=== PATIENT | female | born 1945 | race Caucasian/White ===

== ENCOUNTER → 2023-08-06 | Emergency (ER) | payer OTHER, MEDICARE ==
--- NOTE | 2023-08-06 03:59 | ER ---
Nurse's Notes [facility] Name: Pamela Cárdenas Age: 78 yrs Sex: Female : 1945 Arrival Date: 08/06/2023 Time: 02:38 Bed 5 Private MD: Diagnosis: Occipital Hematoma Presentation: 08/06 02:39 Chief complaint: EMS states: tripped while going to restroom. fall on [place] lg3 hitting back of head. denies LOC. pain to scalp with small abrasion noted. pt currently on Eliquis. Coronavirus screen: Client denies travel out of the [place] in the last 14 days. At this time, the client does not indicate any symptoms associated with coronavirus-19. Ebola Screen: No symptoms or risks identified at this time. Initial Sepsis Screen: Does the patient meet any 2 criteria? No. Patient's initial sepsis screen is negative. Does the patient have a suspected source of infection? No. Patient's initial sepsis screen is negative. Risk Assessment: Do you want to hurt yourself or someone else? Patient reports no desire to harm self or others. Onset of symptoms was August 06, 2023. 02:39 Method Of Arrival: EMS: [facility] lg3 02:39 Acuity: BETTIE 3 lg3 Triage Assessment: 02:45 General: Appears in no apparent distress. comfortable, Behavior is calm, cooperative. lg3 Pain: Complains of pain in scalp Pain does not radiate. Pain currently is 3 out of 10 on a pain scale. EENT: No deficits noted. No signs and/or symptoms were reported regarding the EENT system. Neuro: No deficits noted. Bennett Agitation-Sedation Scale (RASS): 0 - Alert and Calm Level of Consciousness is awake, alert, obeys commands, Oriented to person, place, time, situation, Reports dizziness. Cardiovascular: No deficits noted. Denies chest pain, shortness of breath, Heart tones S1 S2 present Capillary refill < 3 seconds Clubbing of nail beds is absent JVD is absent Patient's skin is warm and dry. Respiratory: No deficits noted. Airway is patent Respiratory effort is even, unlabored, Respiratory pattern is regular, symmetrical, Breath sounds are clear bilaterally. GI: No deficits noted. No signs and/or symptoms were reported involving the gastrointestinal system. Abdomen is round non-distended, obese. : No deficits noted. No signs and/or symptoms were reported regarding the genitourinary system. Derm: Skin is intact, is healthy with good turgor, Skin is dry, Skin is normal, Skin temperature is warm Wound noted scalp. Musculoskeletal: No deficits noted. No signs and/or symptoms reported regarding the musculoskeletal system. Circulation, motion, and sensation intact. Range of motion: intact in all extremities. Historical: - Allergies: 02:45 No Known Allergies; lg3 - Home Meds: 02:45 Eliquis oral [Active]; lg3 - PMHx: 02:45 Cerebrovascular accident; Diabetes mellitus; Hypertensive disorder; Hypothyroidism; lg3 Atrial fibrillation; - PSHx: 02:45 Total abdominal hysterectomy; Appendectomy; Cholecystectomy; left knee replacement; lg3 neck; - Immunization history:: Adult Immunizations up to date, Client reports receiving the 2nd dose of the Covid vaccine, Flu vaccine is up to date. - Social history:: Smoking status: Patient denies any tobacco usage or history of. Patient/guardian denies using alcohol, street drugs. Screenin:48 Abuse screen: Denies threats or abuse. Denies injuries from another. Nutritional ha1 screening: No deficits noted. Tuberculosis screening: No symptoms or risk factors identified. 02:53 [facility] ED Fall Risk Assessment (Adult) History of falling in the last 3 months, lg3 including since admission Yes- single mechanical fall (1 pt) Confusion or Disorientation No (0 pts) Intoxicated or Sedated No (0 pts) Impaired Gait No (0 pts) Mobility Assist Device Used No (0 pt) Altered Elimination No (0 pt) Score/Fall Risk Level 0 - 2 = Low Risk Oriented to surroundings, Maintained a safe environment, Educated pt \T\ family on fall prevention, incl call for assistance when getting out of bed, Assessed \T\ reinforced patient's understanding of fall precautions. Assessment: 02:52 General: see triage assessment. lg3 03:32 Reassessment: Patient appears in no apparent distress at this time. No changes from lg3 previously documented assessment. Patient and/or family updated on plan of care and expected duration. Pain level reassessed. Patient is alert, oriented x 3, equal unlabored respirations, skin warm/dry/pink. 04:17 Reassessment: Patient appears in no apparent distress at this time. No changes from lg3 previously documented assessment. Patient and/or family updated on plan of care and expected duration. Pain level reassessed. Patient is alert, oriented x 3, equal unlabored respirations, skin warm/dry/pink. Patient states symptoms have improved. Vital Signs: 02:39 BP 139 / 79; Pulse 57; Resp 17 S; Temp 97.4(TE); Pulse Ox 100% on R/A; Weight 108.86 kg lg3 (R); Height 5 ft. 8 in. (R); Pain 3/10; 04:17 BP 139 / 70; Pulse 62; Resp 17 S; Temp 97.6(TE); Pulse Ox 100% on R/A; lg3 02:39 Body Mass Index 36.49 (108.86 kg, 172.72 cm) lg3 02:39 Pain Scale: Adult lg3 ED Course: 02:39 Patient arrived in ED. ec2 02:39 Moe Taylor MD is Attending Physician. ec2 02:39 Marga Driscoll RN is Primary Nurse. lg3 02:39 Patient has correct armband on for positive identification. Placed in gown. Bed in low ha1 position. Call light in reach. Side rails up X2. Adult w/ patient. 02:45 Triage completed. lg3 02:45 Arm band placed on right wrist. lg3 02:48 Inserted saline lock: 20 gauge in left antecubital area, using aseptic technique. Blood ha1 collected. 02:53 No provider procedures requiring assistance completed. Patient maintains SpO2 lg3 saturation greater than 95% on room air. 03:04 CT Head C Spine In Process Unspecified. EDMS 03:13 CXR XRAY In Process Unspecified. EDMS 03:13 Pelvis XRAY In Process Unspecified. EDMS 04:18 IV discontinued, intact, bleeding controlled, No redness/swelling at site. Pressure lg3 dressing applied. Administered Medications: No medications were administered Medication: 04:18 VIS not applicable for this client. lg3 Outcome: 03:58 Discharge ordered by . ec2 04:18 Discharged to home via wheelchair, with family, lg3 04:18 Condition: stable 04:18 Discharge instructions given to patient, family, Instructed on discharge instructions, follow up and referral plans. Demonstrated understanding of instructions, follow-up care, 04:18 Patient left the ED. lg3 Signatures: Dispatcher [employer] Marga Lambert RN RN lg3 Rachael Hooks RN RN ha1 Moe Taylor MD MD ec2
--- NOTE | 2023-08-06 03:59 | EDPHYS ---
Physician Documentation [facility] Name: Pamela Cárdenas Age: 78 yrs Sex: Female : 1945 Arrival Date: 08/06/2023 Time: 02:38 Bed 5 Private MD: ED Physician Moe Taylor HPI: 08/06 02:40 This 78 yrs old Female presents to ER via Unassigned with complaints of fall. ec2 02:40 Patient arrives today for evaluation after ground-level fall. States that she was ec2 walking subsequently tripped and fell and hit the back of her head. No LOC, is on Eliquis. Patient denies any prodromal symptoms, denies chest pain, denies difficulty breathing otherwise no other concerns.. Historical: - Allergies: 02:45 No Known Allergies; lg3 - Home Meds: 02:45 Eliquis oral [Active]; lg3 - PMHx: 02:45 Cerebrovascular accident; Diabetes mellitus; Hypertensive disorder; Hypothyroidism; lg3 Atrial fibrillation; - PSHx: 02:45 Total abdominal hysterectomy; Appendectomy; Cholecystectomy; left knee replacement; lg3 neck; - Immunization history:: Adult Immunizations up to date, Client reports receiving the 2nd dose of the Covid vaccine, Flu vaccine is up to date. - Social history:: Smoking status: Patient denies any tobacco usage or history of. Patient/guardian denies using alcohol, street drugs. ROS: 02:40 Constitutional: as per hpi ec2 Exam: 02:40 Constitutional: GEN: No acute distress HEENT: -Head: no deformities -Eyes: EOMI CV: ec2 regular rate LUNGS: no respiratory distress ABD: non-tender SKIN: Abrasion to the occiput no laceration MSK: No C/T/L spine deformities RUE w/o bony deformity LUE w/o bony deformity RLE w/o bony deformity LLE w/o bony deformity NEURO: moves all extremities equally, GCS 15 (E4, V5, M6) Vital Signs: 02:39 BP 139 / 79; Pulse 57; Resp 17 S; Temp 97.4(TE); Pulse Ox 100% on R/A; Weight 108.86 kg lg3 (R); Height 5 ft. 8 in. (R); Pain 3/10; 04:17 BP 139 / 70; Pulse 62; Resp 17 S; Temp 97.6(TE); Pulse Ox 100% on R/A; lg3 02:39 Body Mass Index 36.49 (108.86 kg, 172.72 cm) lg3 02:39 Pain Scale: Adult lg3 MDM: 02:40 ED course: Patient arrives today for evaluation after ground-level fall. Patient on ec2 blood thinners. Examination remarkable for well-appearing nontoxic individual is otherwise in no acute distress. Will obtain CT scan of the head and C-spine. Evaluating for process such as bony fracture of the C-spine, intracranial brain bleed.. 02:43 Patient medically screened. ec2 03:32 Data reviewed: vital signs. ED course: CT scan of the head and C-spine shows no acute ec2 intracranial process, no C-spine fracture noted.. 03:56 ED course: Chest x-ray and pelvis x-ray independently reviewed and interpreted by me, ec2 shows no traumatic process. Will ambulate the patient.. 03:58 ED course: Patient ambulated without issue. Will discharge home. Return precautions ec2 given.. 04:01 ED course: Of note patient with incidental lung mass noted, also thyroid calcification ec2 noted, instructed the patient to follow-up with primary care doctor for further evaluation for this.. 08/06 02:55 Order name: Glucose, Ancillary Testing; Complete Time: 02:59 EDMS 08/06 02:39 Order name: CT Head C Spine ec2 08/06 02:39 Order name: CXR XRAY ec2 08/06 02:39 Order name: Pelvis XRAY ec2 Administered Medications: No medications were administered Disposition Summary: 08/06/23 03:58 Discharge Ordered Condition: Stable ec2 Diagnosis - Occipital Hematoma ec2 Followup: ec2 - With: Private Physician - When: - Reason: Recheck today's complaints Discharge Instructions: - Discharge Summary Sheet ec2 - Hematoma, [id number] ec2 Forms: - Medication Reconciliation Form ec2 - Thank You Letter ec2 - Antibiotic Education ec2 - Prescription Opioid Use ec2 - Patient Portal Instructions ec2 - Leadership Thank You Letter ec2 Signatures: Dispatcher [employer] Marga Lambert RN RN lg3 Moe Taylor MD MD ec2
[2023-08-06 04:38] VITALS: BP 139/70; TEMP 97.6; O2SAT 100
--- NOTE | 2023-08-06 22:11 | RAD REPORT ---
EXAM DESCRIPTION: CT - Head C Spine Mpr Wo Con - 08/06/2023 6:57 am CLINICAL HISTORY: Fall, blood thinners TECHNIQUE: Contiguous axial CT images obtained through the brain without IV contrast. Coronal and sa gittal reformatted images were provided. This exam was performed according to our departmental dose-optimization program, which includes autom ated exposure control, adjustment of the mA and/or kV according to patient size and/or use of iterati ve reconstruction technique. COMPARISON: None available for comparison FINDINGS: Brain: Age related loss of brain volume and chronic white matter ischemic changes. Chronic basal ganglia lacunar infarcts.. No focal mass effect. Helms-white matter differentiation is w ithin normal limits. No hemorrhage. Ventricles: No ventriculomegaly or midline shift. Extra-axial spaces: No extra-axial collection or hemorrhage. Paranasal sinuses and mastoid air cells: Well-aerated Bones: Unremarkable Soft tissues: Posterior scalp hematoma. IMPRESSION: 1. No acute intracranial injury. 2. Age related loss of brain volume and chronic white matter ischemic changes. Chronic basal gangli a lacunar infarcts. 3. Posterior scalp hematoma. EXAM DESCRIPTION: Head C Spine Mpr Wo Con CLINICAL HISTORY: Fall, blood thinners TECHNIQUE: Contiguous axial CT images obtained through the cervical spine without IV contrast. Cor onal and sagittal reformatted images also provided. This exam was performed according to our departmental dose-optimization program, which includes autom ated exposure control, adjustment of the mA and/or kV according to patient size and/or use of iterati ve reconstruction technique. COMPARISON: None available for comparison FINDINGS: Vertebra: No acute fracture or subluxation. Surgical changes status post anterior fusion at C6-C7 Degenerative changes: Multilevel degenerative changes with prominent narrowing of intervertebral disc spaces from C3-C4 through C5-C6. Anterolisthesis of C3 on C4, and C4 on C5 likely chronic. Multilevel facet joint arthropathy. Prevertebral soft tissues: Unremarkable Lung apices: Spiculated lesion in the right lung apex measuring approximately 2 cm in diameter. Recom mend further evaluation with contrast-enhanced CT of the chest Heterogeneous enlargement of the left lobe of the thyroid with calcifications. Recommend follow-up no nemergent thyroid ultrasound. IMPRESSION: No evidence of acute cervical spine fracture. Postsurgical and degenerative changes of the cervical spine. Spiculated lesion in the right lung apex measuring approximately 2 cm in diameter. Recommend further evaluation with contrast-enhanced CT of the chest Heterogeneous enlargement of the left lobe of the thyroid with calcifications. Recommend follow-up no nemergent thyroid ultrasound. Electronically signed by: Brian Power MD 08/06/2023 03:26 AM SALES ASSOCIATE Due to temporary technical issues with the PACS/Fluency reporting system, reports are being signed by the in house radiologists without review as a courtesy to insure prompt reporting. The interpreting radiologist is fully responsible for the content of the report.
--- NOTE | 2023-08-06 22:12 | RAD REPORT ---
EXAM DESCRIPTION: RAD - Pelvis - 08/06/2023 3:11 am CLINICAL HISTORY: Female, 78 years old, pelvis TECHNIQUE: 1 view COMPARISON: None. FINDINGS: Soft tissue attenuation and beam underpenetration limit assessment. No evidence of acute fracture or dislocation. Osseous demineralization. Degenerative change of the agustin mbosacral spine and hips. Pelvic calcifications. IMPRESSION: No acute osseous finding of the pelvis. Electronically signed by: Arie Jamison MD 08/06/2023 05:21 AM BARREL RIFLER OPERATOR Due to temporary technical issues with the PACS/Fluency reporting system, reports are being signed by the in house radiologists without review as a courtesy to insure prompt reporting. The interpreting radiologist is fully responsible for the content of the report.
--- NOTE | 2023-08-06 22:13 | RAD REPORT ---
EXAM DESCRIPTION: RAD - Chest Single View - 08/06/2023 3:11 am CLINICAL HISTORY: Female, 78 years old, fall TECHNIQUE: 1 view COMPARISON: None. FINDINGS: SUPPORT DEVICES: None. LUNGS/PLEURA: No consolidation, pleural effusion, or pneumothorax. HEART/MEDIASTINUM: Cardiomediastinal silhouette has normal size and configuration. Aortic atheroscler osis. OTHER: No acute osseous findings. Cervical fixation hardware. IMPRESSION: No acute cardiopulmonary findings. Electronically signed by: Arie Jamison MD 08/06/2023 05:19 AM IRONWORKER HELPER [employer]OP Due to temporary technical issues with the PACS/Fluency reporting system, reports are being signed by the in house radiologists without review as a courtesy to insure prompt reporting. The interpreting radiologist is fully responsible for the content of the report.
== END ==
LOC: ER 02:38
DX: S00.83XA Contusion of other part of head, initial encounter (principal); W01.0XXA Fall on same level from slipping, tripping and stumbling without subsequent striking against object, initial encounter; Z86.73 Personal history of transient ischemic attack (TIA), and cerebral infarction without residual deficits; E11.9 Type 2 diabetes mellitus without complications; I10 Essential (primary) hypertension; I48.91 Unspecified atrial fibrillation; Z79.01 Long term (current) use of anticoagulants
CPT/HCPCS: 70450; 71045; 72125; 72170; 82947; 99284